=== PATIENT | male | born 1980 | race Caucasian/White ===

== ENCOUNTER 2022-09-23 21:11 | Emergency (ER) | payer MEDICAID ==
[~2022-09-23] VITALS: Ht 172.7 cm; Wt 143.0 kg
--- NOTE | 2022-09-23 21:28 | ED Chest Pain ---
General Chief Complaint: Chest Wall Stated Complaint: CHEST PAIN Source: patient History of Present Illness Date Seen by Provider: Sep 23, 2022 Time Seen by Provider: 21:15 Initial Comments PT ARRIVES VIA POV FROM HOME C/O CHEST PAIN THAT BEGAN AROUND 2029 TONIGHT PAIN IS IN CENTER OF CHEST AND RADIATED TO HIS NECK STATES HE WAS REACHING FOR A CUP WHEN PAIN BEGAN, AND STATES "WHEN IT HAPPENED IT WAS A "50" AND I SCREAMED AND NOW IT'S A 2" STATES HE GOT DIZZY AND THEN "GOT SUPER TIRED-SUPER FATIGUED" + SWEATS + NAUSEA, NO VOMITING NO SHORTNESS OF BREATH NO SYNCOPE NO PALPITATIONS NO SWELLING IN LEGS / FEET OR PAIN IN CALVES. HE HAS BEEN HAVING LEFT SHOULDER PAIN FOR THE LAST FEW DAYS NO COUGH OR URI SYMPTOMS NO FEVER OR RECENT ILLNESS STATES HE IS VERY ANXIOUS RIGHT NOW--ABOUT THE PAIN HE HAD, BUT ALSO ABOUT BEING IN HOSPITAL AND GETTING AN IV / BLOOD DRAWN NO HISTORY OF SIMILAR PT DENIES ANY MEDICAL PROBLEMS OTHER THAN ANXIETY PT HAD GASTRIC SLEEVE SURGERY IN 2011--WEIGHT WS 375 AT THAT TIME. WEIGHT NOW IS 315. PT HAS HAD COVID-19 VACCINE X 1 LEE & LEE NO FLU VACCINE. PCP: NONE USED TO LIVE IN [place], AND SAW DR. FARRIS. THEN MOVED TO [place]. MOVED BACK HERE TO [facility] A FEW MONTHS AGO AND HAS NOT ATTEMPTED TO ESTABLISH CARE WITH ANYONE. HE LATER STATES HE IS PLANNING ON GOING BACK TO DR. FARRIS FOR ALL HIS MEDICAL CARE. Allergies and Home Medications Allergies Coded Allergies: No Known Drug Allergies (Unverified , 09/23/22) Patient Home Medication List Home Medication List Reviewed: Yes Review of Systems Review of Systems Constitutional: see HPI, diaphoresis, dizziness, malaise, weakness EENTM: No Symptoms Reported Respiratory: No Symptoms Reported Cardiovascular: See HPI, Chest Pain; Denies Edema, Denies Irregular Heart Rate; Lightheadedness; Denies Palpitations, Denies Syncope Gastrointestinal: See HPI; Denies Abdominal Pain; Nausea; Denies Vomiting Genitourinary: No Symptoms Reported Musculoskeletal: see HPI Skin: no symptoms reported Psychiatric/Neurological: See HPI, Anxiety Endocrine: No Symptoms Reported Hematologic/Lymphatic: No Symptoms Reported Past [id number] Hx Patient Social History Tobacco Use?: No Smoking Status: Never a Smoker Smokeless Tobacco Frequency: Never a User Use of E-Cig and/or Vaping dev: No Use of E-Cig and/or Vaping Juan C: Never a User Substance use?: No Alcohol Use?: No Immunizations Up To Date Influenza Vaccine Up-to-Date: No; Not Current First/Initial COVID19 Vaccinat: 2020 Second COVID19 Vaccination Connor: NONE Third COVID19 Vaccination Date: NONE COVID19 Vaccine 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 oz. kg; BMI Method: General Appearance: No Apparent Distress, WD/WN, Anxious, Obese Neck: Normal Inspection Respiratory: Normal Breath Sounds, No Accessory Muscle Use, No Respiratory Distress, Other (STERNUM IS TENDER TO PALPATION--THIS REPRODUCES PT'S PAIN ) Cardiovascular: Regular Rate, Rhythm, No Edema, No JVD, No Murmur, Normal Peripheral Pulses Gastrointestinal: Non Tender, Soft Extremity: Normal Capillary Refill, Normal Inspection, Normal Range of Motion, Non Tender, No Calf Tenderness, No Pedal Edema Neurologic/Psychiatric: Alert, Oriented x3, No Motor/Sensory Deficits, carpet jack II- XII Norm as Tested, Other (ANXIOUS) Skin: Normal Color, Warm/Dry Progress/Results/Core Measures Results/Orders Lab Results Laboratory Tests Test 09/23/22 21:40 09/24/22 00:35 Range/Units White Blood Count 8.6 4.3-11.0 10^3/uL Red Blood Count 4.98 4.30-5.52 10^6/uL Hemoglobin 15.2 13.3-17.7 g/dL Hematocrit 45 40-54 % Mean Corpuscular Volume 90 80-99 fL Mean Corpuscular Hemoglobin 31 25-34 pg Mean Corpuscular Hemoglobin Concent 34 32-36 g/dL Red Cell Distribution Width 12.0 10.0-14.5 % Platelet Count 429 H 130-400 10^3/uL Mean Platelet Volume 8.9 L 9.0-12.2 fL Immature Granulocyte % (Auto) 1 % Neutrophils (%) (Auto) 59 42-75 % Lymphocytes (%) (Auto) 26 12-44 % Monocytes (%) (Auto) 9 0-12 % Eosinophils (%) (Auto) 5 0-10 % Basophils (%) (Auto) 1 0-10 % Neutrophils # (Auto) 5.1 1.8-7.8 10^3/uL Lymphocytes # (Auto) 2.2 1.0-4.0 10^3/uL Monocytes # (Auto) 0.7 0.0-1.0 10^3/uL Eosinophils # (Auto) 0.4 H 0.0-0.3 10^3/uL Basophils # (Auto) 0.1 0.0-0.1 10^3/uL Immature Granulocyte # (Auto) 0.1 0.0-0.1 10^3/uL Prothrombin Time 13.6 12.2-14.7 SEC INR Comment 1.0 0.8-1.4 Activated Partial Thromboplast Time 30 24-35 SEC D-Dimer 0.33 0.00-0.49 UG/ML Sodium Level 137 135-145 MMOL/L Potassium Level 3.7 3.6-5.0 MMOL/L Chloride Level 108 H 98-107 MMOL/L Carbon Dioxide Level 19 L 21-32 MMOL/L Anion Gap 10 5-14 MMOL/L Blood Urea Nitrogen 19 H 7-18 MG/DL Creatinine 0.97 0.60-1.30 MG/DL Estimat Glomerular Filtration Rate 99 BUN/Creatinine Ratio 20 Glucose Level 108 H 70-105 MG/DL Calcium Level 9.3 8.5-10.1 MG/DL Corrected Calcium 9.2 8.5-10.1 MG/DL Magnesium Level 1.9 1.6-2.4 MG/DL Total Bilirubin 0.3 0.1-1.0 MG/DL Aspartate Amino Transf (AST/SGOT) 25 5-34 U/L Alanine Aminotransferase (ALT/SGPT) 37 0-55 U/L Alkaline Phosphatase 96 40-136 U/L Total Creatine Kinase 79 30-200 U/L Creatine Kinase MB 0.8 <6.6 NG/ML Myoglobin 39.4 10.0-92.0 NG/ML Troponin I < 0.028 < 0.028 <0.028 NG/ML B-Type Natriuretic Peptide < 10.0 <100.0 PG/ML Total Protein 8.1 6.4-8.2 GM/DL Albumin 4.1 3.2-4.5 GM/DL Amylase Level 58 25-125 U/L Lipase 19 8-78 U/L My Orders Orders - FRANSICO GOMEZ DO Ekg Tracing (09/23/22 21:16) Cbc With Automated Diff (09/23/22 21:16) Magnesium (09/23/22 21:16) Chest 1 View, Ap/Pa Only (09/23/22 21:16) Comprehensive Metabolic Panel (09/23/22 21:16) Myoglobin Serum (09/23/22 21:16) Protime With Inr (09/23/22 21:16) Partial Thromboplastin Time (09/23/22 21:16) O2 (09/23/22 21:16) Monitor-Rhythm Ecg Trace Only (09/23/22 21:16) Ed Iv/Invasive Line Start (09/23/22 21:16) Creatine Kinase (09/23/22 21:16) Creatine Kinase Mb (09/23/22 21:16) Lipase (09/23/22 21:16) Amylase (09/23/22 21:16) Bnp Chandan (09/23/22 21:16) Fibrin Degradation Products (09/23/22 21:16) Troponin I Hendry (09/23/22 21:16) Aspirin Chewable Tablet (Baby Aspirin Ch (09/23/22 21:30) Nitroglycerin Ointment (Nitrobid Ointme (09/23/22 21:30) Ekg Tracing (09/24/22 00:16) Troponin I Hendry (09/24/22 00:16) Medications Given in ED Vital Signs/I&O 09/23/22 09/24/22 21:15 01:30 Temp 36.4 Pulse 90 87 Resp 22 16 B/P (MAP) 192/110 (137) 150/110 Pulse Ox 97 98 O2 Delivery Room Air Room Air Progress Progress Note : Progress Note GIVEN ASPIRIN AND 1" NITROPASTE APPLIED BP DOWN TO 130/100 AND PT IS PAIN FREE BP DOWN TO 130'S/90 AT DISMISSAL WILL MONITOR IN ER AND DO REPEAT EKG AND TROPONIN AT 3 HOURS NO RETURN OF PAIN NO EKG CHANGES, AND TROPONIN REMAINS NEGATIVE. PT HAD NO COMPLAINTS FOR THE REMAINDER OF ER STAY REPEAT TROPONIN IS NEGATIVE. DISCUSSED ADMIT FOR FURTHER CARDIAC EVALUATION, VS SENDING HOME AND FOLLOWING UP FOR ADDITIONAL OUTPATIENT TESTING. PT WOULD LIKE TO GO HOME DISCUSSED TEST RESULTS, SYMPTOMATIC TREATMENT, NEED FOR FOLLOW UP AND RETURN PRECAUTIONS. Initial ECG Impression Date: Sep 23, 2022 Initial ECG Impression Time: 21:20 Initial ECG Rate: 101 Initial ECG Rhythm: Normal Sinus Initial ECG Impression: Nonspecific Changes Initial ECG Comparisson: No Previous ECG Available EKG : EKG Time: 00:23 Rate: 80 Rhythm: Normal Sinus ECG Comparisson: Unchanged ECG Impression: Nonspecific Changes Diagnostic Imaging Comments CXR--NO ACUTE PROCESS, PENDING RADIOLOGIST REVIEW Reviewed: Reviewed by Me Departure Impression Primary Impression: CHEST PAIN Additional Impressions: Chest wall pain HTN (hypertension) Disposition: 01 HOME, SELF-CARE Condition: Improved Departure-Patient Inst. Decision time for Depature: 01:14 Referrals: NO,LOCAL PHYSICIAN (PCP/Family) Primary Care Physician Patient Instructions: Costochondritis (DC), Chest Pain (DC), High Blood Pressure ED Add. Discharge Instructions: HOME, REST TAKE 81 MG ASPIRIN DAILY TYLENOL AND MOTRIN NEEDED FOR PAIN FOLLOW UP WITH DR FARRIS THIS WEEK. CALL IN THE MORNING TO SCHEDULE AN APPOINTMENT. RETURN TO ER IF SYMPTOMS RETURN. All discharge instructions reviewed with patient and/or family. Voiced understanding. FRANSICO GOMEZ DO Sep 23, 2022 21:28
[2022-09-23] MEDS ORDERED: ASPIRIN 81 MG CHEW (CHILDREN'S ASA) PO ONE (21:30)
[2022-09-23] MEDS ORDERED: NITROGLYCERIN 2% OINT 1 GM UNIT DOSE PACKET TOP ONE (21:30)
[2022-09-23 21:48] LABS: BASOPHILS # (AUTO) 0.1 10^3/uL (0.0-0.1); BASOPHILS % (AUTO) 1 % (0-10); EOSINOPHILS # (AUTO) 0.4 10^3/uL (0.0-0.3); EOSINOPHILS % (AUTO) 5 % (0-10); HEMATOCRIT 45 % (40-54); HEMOGLOBIN 15.2 g/dL (13.3-17.7); LYMPHOCYTES # (AUTO) 2.2 10^3/uL (1.0-4.0); LYMPHOCYTES % (AUTO) 26 % (12-44); MEAN CORPUSCULAR HEMOGLOBIN 31 pg (25-34); MEAN CORPUSCULAR HGB CONC 34 g/dL (32-36); MEAN CORPUSCULAR VOLUME 90 fL (80-99); MEAN PLATELET VOLUME 8.9 fL (9.0-12.2); MONOCYTES # (AUTO) 0.7 10^3/uL (0.0-1.0); MONOCYTES % (AUTO) 9 % (0-12); NEUTROPHILS # (AUTO) 5.1 10^3/uL (1.8-7.8); NEUTROPHILS % (AUTO) 59 % (42-75); PLATELET COUNT 429 10^3/uL (130-400); WHITE BLOOD COUNT 8.6 10^3/uL (4.3-11.0)
--- NOTE | 2022-09-23 21:49 | Diagnostic Imaging Report ---
INDICATION: Chest pain COMPARISON: None available. TECHNIQUE: 2 frontal radiographs of the chest dated 09/23/2022. FINDINGS: The cardiac silhouette is at the upper limits of normal in size. No significant pulmonary vascular congestion. The lungs are clear. No pleural effusion. No pneumothorax. No acute osseous abnormality. IMPRESSION: Cardiac silhouette is at the upper limits of normal in size, though this is likely accentuated by patient body habitus. No superimposed acute cardiopulmonary abnormality. Dictated by: Dictated on workstation # [id number]
[2022-09-23 22:02] LABS: ALBUMIN 4.1 GM/DL (3.2-4.5); POTASSIUM 3.7 MMOL/L (3.6-5.0); PROTHROMBIN TIME PATIENT 13.6 SEC (12.2-14.7)
[2022-09-23 22:04] LABS: CALCIUM 9.3 MG/DL (8.5-10.1)
[2022-09-23 22:05] LABS: TOTAL PROTEIN 8.1 GM/DL (6.4-8.2)
[2022-09-23 22:07] LABS: BILIRUBIN,TOTAL 0.3 MG/DL (0.1-1.0)
[2022-09-23 22:09] LABS: CREATININE SERUM 0.97 MG/DL (0.60-1.30)
[2022-09-23 22:11] LABS: MAGNESIUM 1.9 MG/DL (1.6-2.4)
[2022-09-23 22:20] LABS: CREATINE KINASE MB 0.8 NG/ML (<6.6)
[2022-09-24 01:30] VITALS: BP 150/110
== END 2022-09-24 01:30 | disposition home or self-care (01) ==
LOC: ER 21:14
DX: R07.89 Other chest pain (principal); I10 Essential (primary) hypertension; E66.01 Morbid (severe) obesity due to excess calories; Z28.311 Partially vaccinated for COVID-19; Z68.42 Body mass index [BMI] 45.0-49.9, adult
CPT/HCPCS: 36415; 71045; 80053; 82150; 82550; 82553; 83690; 83735; 83874; 83880; 84484; 85025; 85379; 85610; 85730; 93005; 93041